=== PATIENT | male | born 2000 | race African-American/Black ===

== ENCOUNTER 2024-09-19 08:55 | Emergency (ER) | payer MEDICAID ==
[~2024-09-19] VITALS: Ht 170.2 cm; Wt 63.0 kg
[2024-09-19 09:03] VITALS: O2SAT 100
[2024-09-19] MEDS: TETRACAINE 0.5% OPHTH DROPS 4ML LEFTEYE NR (09:44)
[2024-09-19] MEDS: FLUORESCEIN SODIUM 1MG/STRIP LEFTEYE NR (09:44)
[2024-09-19] MEDS ORDERED: TETRACAINE 0.5% OPHTH DROPS 4ML LEFTEYE ONE (09:45)
[2024-09-19] MEDS ORDERED: FLUORESCEIN SODIUM 1MG/STRIP LEFTEYE ONE (09:45)
[2024-09-19] MEDS: ACETAMINOPHEN 325MG TABLET PO ONE (09:53)
[2024-09-19] MEDS ORDERED: CIPHCO LEFT EAR (10:42)
[2024-09-19] MEDS ORDERED: DEXT15DR5 EACHEYE (10:42)
[2024-09-19 11:09] VITALS: BP 115/68; PULSE 69; RESP 18; TEMP 37.1; O2SAT 100
== END 2024-09-19 11:21 | disposition home or self-care (01) ==
LOC: ER 08:55
DX: S43.401A Unspecified sprain of right shoulder joint, initial encounter (principal); H10.89 Other conjunctivitis; W18.39XA Other fall on same level, initial encounter; Y93.89 Activity, other specified; Y92.89 Other specified places as the place of occurrence of the external cause; Y99.8 Other external cause status
CPT/HCPCS: 73030; 99283

== ENCOUNTER 2024-09-26 20:08 | Emergency (ER) | payer MEDICAID ==
[~2024-09-26] VITALS: Ht 170.2 cm; Wt 61.0 kg
[~2024-09-26 20:08] MED LIST: CIPHCO LEFT EAR; DEXT15DR5 EACHEYE
[2024-09-26 20:18] VITALS: O2SAT 99
[2024-09-26 20:24] VITALS: BP 100/62; PULSE 66; RESP 16; TEMP 36.9; O2SAT 99
[2024-09-26] MEDS ORDERED: BO1 TP (22:53)
== END 2024-09-26 23:15 | disposition home or self-care (01) ==
LOC: ER 20:08
DX: S50.811A Abrasion of right forearm, initial encounter (principal); F20.9 Schizophrenia, unspecified; F41.9 Anxiety disorder, unspecified; Z79.899 Other long term (current) drug therapy; W19.XXXA Unspecified fall, initial encounter; Y93.89 Activity, other specified; Y92.89 Other specified places as the place of occurrence of the external cause; Y99.8 Other external cause status
CPT/HCPCS: 99282